=== PATIENT | female | born 1945 | race Caucasian/White ===

== ENCOUNTER → 2016-09-29 | Outpatient (CLI) | payer MEDICARE ==
--- NOTE | 2016-09-30 10:34 | RADIOLOGY REPORT PS360 ---
EXAM: CT LUNG LOW DOSE WO CONTRAST COMPARISON: None HISTORY: 71-year-old asymptomatic female with greater than 30 pack-year smoking history ORDERING PHYSICIAN: Eulalio Mathews MD PATIENT AGE: 71 years TECHNIQUE: The exam was performed on a GE Light Speed [address] scanner using 2.94 mGy CTDI. A low dose helical CT CHEST was performed on a multi-detector scanner The LDCT was performed in a facility that meets the criteria for the screening program. Data regarding this exam was submitted to [employer] which is an approved registry. The order for this exam indicates that it came as a result of a lung cancer screening counseling shard decision-making visit that included all the elements required of such a visit including smoking cessation. The radiologist interpreting this exam meets the [facility] criteria for the LDCT lung cancer screening program. The exam is reported using the Lung-RADS classification scale and reported to the ACR registry. NOTE: THIS STUDY WAS PERFORMED FOR THE SPECIFIC PURPOSES OF LUNG CANCER SCREENING AND IS NOT AN ALTERNATIVE TO DIAGNOSTIC CHEST CT. RADIATION DOSE: CTDI vol(CT dose Index-volume) = 2.94mG DLP (Dose Length Product) = 101.69 mGcm FINDINGS: Nodules: 4 mm noncalcified nodule right middle lobe 6 mm noncalcified nodule within the left lower lobe centrally There are atelectatic or fibrotic changes within the right middle lobe and lingula. There is mild hyperinflation with bronchial thickening consistent with obstructive chronic bronchitis. IMPRESSION: 1. Lung RADS Category: 3, probably benign 2. Other findings: COPD RECOMMENDATIONS: [address] follow-up
--- NOTE | 2016-10-04 22:15 | RADIOLOGY REPORT PS360 ---
DIG MAMM-SCREEN JOSEFINA W/CAD CAD Screening ORDERING PHYSICIAN : Eulalio Mathews MD PATIENT AGE: 71 years GENDER: Female COMPARISON: Previous mammograms: Previous bilateral film screen mammogram December 2008 and 2004 INDICATION: Routine screening patient reports female hormones over past year. No new complaints. Previous surgical excisional biopsy benign left breast. TECHNIQUE: Standard CC and MLO images were obtained. R2 CAD reviewed. FINDINGS: Moderate density breast bilaterally with mild asymmetry again observed RIGHT BREAST:. There is an small round/ovoid density at the deep right breast measuring up to 9 mm maximally. This area is'labeled A '. This appears new when compared to previous studies. A mole marker is seen, just anterior to this. Patient return for ultrasound as well as CC and 90 degrees spot view of this area labeled 8. Spot view should also included area of density labeled B the superior breast, which I believe is a stable feature and likely reflects a cyst a summation shadow of fibroglandular elements. It was seen before and seems to dissipate but would benefit from spot view is well. LEFT BREAST: Small area of density inferior left breast labeled X was seen previously reasonably stable as well however it to would benefit from spot view cc MLO with patient returns. It likely resides at 12:00 and most likely is merely asymmetric tissue. Mild ductal prominence retroareolar region has regressed since 2008 IMPRESSION:... 5 RIGHT BREAST: New 9 mm well-defined nodule deep right breast. Possible cyst. Warrants ultrasound and spot views. Labeled a Small asymmetric area of density superior right breast labeled B most likely stable asymmetric glandular tissue. However would benefit from spot view as well as patient returns. LEFT BREAST: asymmetric tissue at the superior left breast labeled X. Strongly favor Favor reflect stable tissue but this focal area of density also would benefit from spot views & ultrasound as well when patient returns BI-RADS CATEGORY: 0 RECOMMENDED FOLLOWUP: ADD ADDITIONAL IMAGING Bilateral Spot views and bilateral breast ultrasound (A letter has been sent to the patient regarding results of the study.)
== END ==
LOC: RAD 07:50
DX: Z87.891 Personal history of nicotine dependence (principal); Z12.2 Encounter for screening for malignant neoplasm of respiratory organs; Z12.31 Encounter for screening mammogram for malignant neoplasm of breast
CPT/HCPCS: G0202; G0297

== ENCOUNTER → 2017-01-01 | Outpatient (CLI) | payer MEDICARE ==
--- NOTE | 2017-01-07 11:29 | RADIOLOGY REPORT PS360 ---
DIG MAMM-DX JOSEFINA W/AVWS W/CAD RIGHT BREAST ULTRASOUND WITH AXILLA LEFT BREAST ULTRASOUND WITH AXILLA COMPARISON: 09/29/2016 INDICATION: Follow-up abnormal mammogram ORDERING PHYSICIAN: Eulalio Mathews MD PATIENT AGE: 71 years TECHNIQUE: Spot compression views performed of both breasts along with bilateral breast ultrasound. FINDINGS: Right breast: Well-circumscribed 9 mm nodular density is present in the deep lower outer right breast. The margins are smooth. This represents a cyst by ultrasound. The asymmetric density noted in the superior aspect of the right breast does appear to compress out as fibroglandular tissue. No discrete mass evident and no significant change dating back to an older exam of 01/01/2009. Left breast: The asymmetric density in the superior left breast does appear to compress out on focal spot compression view. Right breast ultrasound: A 9 x 8 mm cyst is present in the 8:00 region corresponding to the mammographic body. No other abnormalities apparent. Left breast ultrasound: No cyst or mass evident. IMPRESSION: Benign findings. No evidence of malignancy BI-RADS CATEGORY: 2_Benign RECOMMENDED FOLLOWUP: Screening mammogram September 2017 (A letter has been sent to the patient regarding results of the study.)
== END ==
LOC: RAD 13:36
DX: R92.8 Other abnormal and inconclusive findings on diagnostic imaging of breast (principal)
CPT/HCPCS: G0204